=== PATIENT | female | born 1970 | race Caucasian/White ===

== ENCOUNTER → 2017-03-06 | Day surgery (SDC) | payer OTHER ==
[~2017-03-06] VITALS: Ht 162.6 cm; Wt 99.8 kg
[~2017-03-06] MED LIST: ASPIRIN EC81 M1 PO; FENOFIBRATE145 M1 PO; GABAPENTIN300 M2 PO; JANUMET XR 1001 EACH PO; LANTUS SOL100 UNIT/1; LISINOPRIL5 M1 PO; METOPROLOL SUCC25 M1 PO; PROAIR HFA8.5 GM INH; VITAMIN D250000 UNIT PO
--- NOTE | 2017-03-06 06:20 | History & Physical Pre-Op ---
General Information and HPI History of Present Illness: Leona is a 46-year-old female with a long-standing and worsening complaint of a painful heel spur to her right foot. The patient has undergone an extended course of conservative care, including shoe gear and activity modification, rest , immobilization and courses of NSAIDs. None of this is yielded her any significant relief. The patient presents today for preoperative surgical consultation. Allergies/Medications Allergies: Coded Allergies: MDX - Ibuprofen (IBUPROFEN) (RASH 06/11/15) Home Med list Albuterol Sulfate (Proair Hfa) 90 MCG HFA.AER.AD 2 PUF INH Q4-6 PRN PRN ASTHMA (Reported) Aspirin (Ecotrin*) 81 MG TABLET.DR 1 TAB PO DAILY PROPHO (Reported) Ergocalciferol (Vitamin D2) (Vitamin D2) 50,000 UNIT CAPSULE 1 CAP PO QW VITAMIN D DEFICIENCY (Reported) Fenofibrate Nanocrystallized (Fenofibrate) 145 MG TABLET 1 TAB PO DAILY CHOLESTEROL (Reported) Gabapentin 300 MG CAPSULE 1 CAP PO TID PAIN (Reported) Insulin Glargine,Hum.rec.anlog (Lantus Solostar) 100 UNIT/ML (3 ML) INSULN.PEN 40 UNITS NIGHTLY DM II (Reported) Lisinopril 5 MG TABLET 1 TAB PO DAILY HTN (Reported) Metoprolol Succinate 25 MG TAB 1 TAB PO DAILY HTN (Reported) Sitagliptin Phos/Metformin HCl (Janumet XR 100-1,000 MG Tablet) 100 MG-1,000 MG TBMP.24HR 1 TAB PO DAILY DM II (Reported) Past History Medical History Cardiovascular: hypertension Endocrine: diabetes Surgical History Pertinent Surgical History: N Review of Systems Review of Systems: Unremarkable except for that noted to present illness Exam & Diagnostic Data Physical Exam: Lungs clear bilaterally. Heart sounds rate and rhythm regular. Lower extremity physical exam demonstrates intact pedal pulses bilaterally. Pulses dorsalis pedis and posterior tibial arteries are palpable bilaterally. Patient without any sensory motor deficits. Deep tendon reflexes grossly intact. Patient noted to have significant pain with palpation to the plantar aspect of the right heel. Negative Tinel sign noted with percussion the posterior tibial nerve. Assessment/Plan Assessment/Plan: Painful heel spur right foot. A lengthy discussion reviewing both surgical and conservative options was held the patient at bedside and the patient elects to go forward with surgery despite the risks. As Ranked By This Provider Problem List: 1. Calcaneal spur of right foot Attending MD Review Statement Attending Statement Attending MD Statement: examined this patient
--- NOTE | 2017-03-06 09:07 | Operative Report ---
Operative/Inv Procedure Report Surgery Date: 03/06/17 Name of Procedure: 1 excision of heel spur right Pre-Operative Diagnosis: 1 painful heel spur right foot Post-Operative Diagnosis: The same Estimated Blood Loss: scant Surgeon/Glass Pulverizer Equipment Operator: LATRICE PEGUERO DPM Anesthesia: moderate sedation, block Operative/Procedure Note Note: After obtaining informed consent the patient was brought to the operating room and placed on the operating table in the supine position. The patient was then securely fastened to the operating table utilizing safety belt. After administration of IV sedation, 10 mL of 0.5% Marcaine plain was infiltrated about the patient's right ankle. A well-padded ankle tourniquet was placed about the patient's right lower extremity. 2 g of Ancef were delivered intravenously times one dose. The right foot and ankle then scrubbed prepped and draped in usual aseptic manner. The right lower extremity was then elevated to examine to limb, which point the ankle tourniquet was inflated 250 mmHg. Attention directed to the medial aspect the right heel, where a linear incision was made at the junction of the dorsal plantar skin. There is and deepened subtenons tissues. The dissection was then carried down to the medial margin of the plantar fascia, which was released from its origin on the medial tubercle calcaneal tuberosity. The bone spur at the medial tubercle was then sharply rongeured. Any rough edges were smooth a bone rasp. The wound was then irrigated with copious Svensson normal sterile saline. The deep tissues were reapproximated 3-0 Vicryl and the skin edges reapproximated 3-0 nylon. The incision was then dressed with Xeroform 4 x 4's Kerlix and an Gilberto wrap. The patient was noted to tolerate both procedure and anesthesia well and the patient was transported from the operating room to recovery with vital signs stable and fascia status intact to all digits right foot.
== END ==
LOC: STS 01:24
DX: M77.31 Calcaneal spur, right foot (principal); E11.9 Type 2 diabetes mellitus without complications; Z79.4 Long term (current) use of insulin; J45.909 Unspecified asthma, uncomplicated; I10 Essential (primary) hypertension
CPT/HCPCS: J1100; J2001; J2250; J2405